=== PATIENT | male | born 1975 | race Asian ===

== ENCOUNTER 2018-04-16 07:43 | Day surgery (SDC) | payer MEDICARE, MEDICAID ==
[~2018-04-16] VITALS: Ht 160 cm; Wt 62.5 kg
[~2018-04-16 07:43] MED LIST: ASPI81TA52 PO; ATOR10TA87 PO; BUPROPION PO; LINA5TAB4 PO; METFORMIN; OMEPRAZOLE PO; RAMIPRIL PO; TENO300T5 PO
[2018-04-16 08:00] VITALS: BP 123/85
[2018-04-16] MEDS ORDERED: normal saline 1000ml 1,000 ML IV SCH (08:00)
[2018-04-16] MEDS ORDERED: FERR325T28 PO (08:11)
[2018-04-16 08:54] LABS: BASOPHILS % (AUTO) 0.6 % (0-1); EOSINOPHILS # (AUTO) 0.1 X10'3 (0-0.9); HEMATOCRIT 34.5 % (42.0-52.0); HEMOGLOBIN 10.4 g/dl (14.0-17.9); LYMPHOCYTES # (AUTO) 1.1 X10'3 (1.1-4.8); LYMPHOCYTES % (AUTO) 21.7 % (21-51); MEAN CORPUSCULAR HEMOGLOBIN 21.1 PG (27.0-31.0); MEAN CORPUSCULAR HGB CONC 30.3 % (33.0-36.5); MEAN CORPUSCULAR VOLUME 69.8 FL (78-98); MEAN PLATELET VOLUME 9.3 FL (7.4-10.4); MONOCYTES # (AUTO) 0.5 X10'3 (0-0.9); MONOCYTES % (AUTO) 8.9 % (2-12); NEUTROPHILS # (AUTO) 3.5 X10'3 (1.8-7.7); NEUTROPHILS % (AUTO) 66.8 % (42-75); PLATELET COUNT 174 X10'3 (140-440); RED BLOOD COUNT 4.94 X10'6 (4.70-6.10); RED CELL DISTRIBUTION WIDTH 18.8 % (11.5-14.5); WHITE BLOOD COUNT 5.2 X10'3 (4.5-11.0)
[2018-04-16 08:59] LABS: PROTHROMBIN TIME 10.3 SECONDS (9.0-12.0)
[2018-04-16 09:02] LABS: ALBUMIN 3.9 G/DL (3.4-5.0); ANION GAP 10 (8-16); BLOOD UREA NITROGEN 12 MG/DL (7-18); CALCIUM 9.2 MG/DL (8.5-10.1); CHLORIDE 103 MMOL/L (99-107); GLUCOSE 161 MG/DL (70-104); POTASSIUM 4.2 MMOL/L (3.5-5.1); SODIUM 140 MMOL/L (135-145); TOTAL CARBON DIOXIDE 26.6 MMOL/L (24-32); eGFR 82 ML/MIN
[2018-04-16 09:21] LABS: PLATELET ESTIMATE NORMAL
[2018-04-16 09:22] LABS: POLYCHROMASIA 1+
[2018-04-16 09:23] LABS: ANISOCYTOSIS 2+; ELLIPTOCYTES FEW; HYPOCHROMASIA 1+; MICROCYTOSIS 2+; POIKILOCYTOSIS 1+; TEAR DROP CELLS FEW
[2018-04-16] MEDS ORDERED: LIDOcaine 1%/PF 5ML 10 MG/ML VIAL SQ ONE (09:30)
[2018-04-16] MEDS ORDERED: midazolam 2 mg/2 ml injection IV PRN (09:30)
[2018-04-16] MEDS ORDERED: fentaNYL/PF 50MCG/1 ML 2ML syringe IV PRN (09:30)
[2018-04-16] MEDS ORDERED: heparin sodium, porcine/PF 100unit/ml 5ML syringe ICATH ONE (09:30)
[2018-04-16] MEDS ORDERED: midazolam 2 mg/2 ml injection ONE (09:32)
[2018-04-16] MEDS ORDERED: fentaNYL/PF 50MCG/1 ML 2ML syringe ONE (09:32)
[2018-04-16] MEDS ORDERED: heparin sodium, porcine/PF 100unit/ml 5ML syringe ONE (09:33)
[2018-04-16] MEDS ORDERED: LIDOcaine 1%/PF 5ML 10 MG/ML VIAL ONE (09:34)
[2018-04-16 10:30] VITALS: BP 131/59
[2018-04-16 10:45] VITALS: BP 129/82
[2018-04-16 11:00] VITALS: BP 127/82
[2018-04-16 11:15] VITALS: BP 128/80
== END 2018-04-16 11:22 | disposition home or self-care (01) ==
LOC: SSTAY O 07:43
PROVIDERS: ATTEND Radiology Diagnostic Radiology
DX: C25.9 Malignant neoplasm of pancreas, unspecified (principal); E11.9 Type 2 diabetes mellitus without complications; I10 Essential (primary) hypertension; F41.8 Other specified anxiety disorders; K21.9 Gastro-esophageal reflux disease without esophagitis; E78.5 Hyperlipidemia, unspecified; F32.9 Major depressive disorder, single episode, unspecified; Z72.89 Other problems related to lifestyle; Z88.5 Allergy status to narcotic agent; Z86.19 Personal history of other infectious and parasitic diseases; Z79.84 Long term (current) use of oral hypoglycemic drugs; Z79.899 Other long term (current) drug therapy; Z88.8 Allergy status to other drugs, medicaments and biological substances; Z98.890 Other specified postprocedural states
CPT/HCPCS: 36415; 36561; 76937; 77001; 80048; 85025; 85610; 99152; 99153; C1788; J1642; J2001; J2250; J3010; J7030; A4620; A6219; C1894

== ENCOUNTER 2020-02-24 08:14 | Day surgery (SDC) | payer MEDICARE, MEDICAID ==
[~2020-02-24] VITALS: Ht 162.6 cm; Wt 48.7 kg
[2020-02-24] VITALS (8 sets, daily range): BP systolic 91–112; BP diastolic 56–62
[~2020-02-24 08:14] MED LIST changes: -ASPI81TA52 PO; +FERR325T28 PO
[2020-02-24] MEDS ORDERED: normal saline 1000ml 1,000 ML IV PRN (08:40)
[2020-02-24] MEDS ORDERED: albumin 25% 100mL bottle x 1 IV PRN (08:40)
[2020-02-24] MEDS ORDERED: FURO20TA4 PO (08:59)
[2020-02-24] MEDS ORDERED: MELO-100 PO (08:59)
[2020-02-24] MEDS ORDERED: SPIR25TA5 PO (08:59)
[2020-02-24] MEDS ORDERED: PROC10TA10 PO (08:59)
[2020-02-24] MEDS ORDERED: AMYL1CAP57 PO (08:59)
[2020-02-24] MEDS ORDERED: LACT10SO PO (08:59)
[2020-02-24] MEDS ORDERED: ALPR0.255 PO (08:59)
[2020-02-24] MEDS ORDERED: MORP15TA PO (08:59)
[2020-02-24] MEDS ORDERED: HUM7525 SQ (08:59)
== END 2020-02-24 11:40 | disposition home or self-care (01) ==
LOC: SSTAY O 08:14
PROVIDERS: ATTEND Radiology Vascular & Interventional Radiology
DX: R18.8 Other ascites (principal); C78.7 Secondary malignant neoplasm of liver and intrahepatic bile duct; Z86.19 Personal history of other infectious and parasitic diseases; Z88.8 Allergy status to other drugs, medicaments and biological substances; Z79.899 Other long term (current) drug therapy; Z85.07 Personal history of malignant neoplasm of pancreas
CPT/HCPCS: 49083; P9047

== ENCOUNTER 2020-03-02 08:10 | Day surgery (SDC) | payer MEDICARE, OTHER ==
[~2020-03-02] VITALS: Ht 162.6 cm; Wt 44.4 kg
[~2020-03-02 08:10] MED LIST changes: +ALPR0.255 PO; +AMYL1CAP57 PO; -FERR325T28 PO; +FURO20TA4 PO; +HUM7525 SQ; +LACT10SO PO; -LINA5TAB4 PO; +MELO-100 PO; +MORP15TA PO; +PROC10TA10 PO; +SPIR25TA5 PO
[2020-03-02 08:25] VITALS: BP 123/59
[2020-03-02] MEDS ORDERED: albumin 25% 100mL bottle x 1 IV PRN ×2 (08:30→08:55)
[2020-03-02 09:40] VITALS: BP 123/59
[2020-03-02 09:47] VITALS: BP 124/60
== END 2020-03-02 10:00 | disposition home or self-care (01) ==
LOC: SSTAY O 08:10
PROVIDERS: ATTEND Radiology Diagnostic Radiology
DX: R18.8 Other ascites (principal); K74.60 Unspecified cirrhosis of liver; C78.7 Secondary malignant neoplasm of liver and intrahepatic bile duct; Z86.19 Personal history of other infectious and parasitic diseases; Z85.07 Personal history of malignant neoplasm of pancreas; Z88.8 Allergy status to other drugs, medicaments and biological substances; Z79.899 Other long term (current) drug therapy
CPT/HCPCS: 49083

== ENCOUNTER 2020-03-04 08:02 | Day surgery (SDC) | payer MEDICARE, OTHER ==
[~2020-03-04 08:02] MED LIST changes: -ALPR0.255 PO; -BUPROPION PO; -MELO-100 PO; -PROC10TA10 PO
[2020-03-04 08:23] VITALS: BP 106/74
[2020-03-04] MEDS ORDERED: ONDA8TAB13 PO (08:49)
[2020-03-04] MEDS ORDERED: PANT-47 PO (08:49)
[2020-03-04] MEDS ORDERED: ALPR-623 PO (08:49)
[2020-03-04 09:11] LABS: BASOPHILS # (AUTO) 0.1 X10'3 (0-0.2); BASOPHILS % (AUTO) 0.3 % (0-1); EOSINOPHILS # (AUTO) 0.1 X10'3 (0-0.9); EOSINOPHILS % (AUTO) 0.2 % (0-6); HEMATOCRIT 24.9 % (42.0-52.0); HEMOGLOBIN 8.2 g/dl (14.0-17.9); LYMPHOCYTES # (AUTO) 2.1 X10'3 (1.1-4.8); LYMPHOCYTES % (AUTO) 7.4 % (21-51); MEAN CORPUSCULAR HGB CONC 33.1 g/dL (33.0-36.5); MEAN CORPUSCULAR VOLUME 93.7 FL (78-98); MEAN PLATELET VOLUME 7.8 FL (7.4-10.4); MONOCYTES # (AUTO) 1.6 X10'3 (0-0.9); MONOCYTES % (AUTO) 5.6 % (2-12); NEUTROPHILS # (AUTO) 24.7 X10'3 (1.8-7.7); NEUTROPHILS % (AUTO) 86.5 % (42-75); PLATELET COUNT 473 X10'3 (140-440); RED BLOOD COUNT 2.66 X10'6 (4.70-6.10); RED CELL DISTRIBUTION WIDTH 20.3 % (11.5-14.5)
[2020-03-04 09:19] LABS: WHITE BLOOD COUNT 28.6 X10'3 (4.5-11.0)
[2020-03-04 10:10] LABS: PLATELET ESTIMATE INCREASED; TOTAL CELLS COUNTED 100
[2020-03-04 10:11] LABS: ANISOCYTOSIS 3+
[2020-03-04 10:12] LABS: HYPOCHROMASIA 1+
[2020-03-04 10:13] LABS: TARGET CELLS FEW
--- NOTE | 2020-03-04 10:21 | NUR ---
Pt with elevated WBC today. Per patient and son-in-law this is his normal. Call placed to [facility], spoke with PRITI Gomez and Dr Redmond. Per Dr Redmond ok to proceed with placement if patient is afebrile with an oral temp of 98.4 so we will proceed.
[2020-03-04] MEDS ORDERED: LIDOcaine/PRILOcaine 5gm cream TP ONE (10:41)
[2020-03-04] MEDS ORDERED: midazolam 2 mg/2 ml injection ONE (10:49)
[2020-03-04] MEDS ORDERED: fentaNYL/PF 50MCG/1 ML 2ML syringe ONE (10:50)
[2020-03-04 11:58] VITALS: BP 104/74
[2020-03-04 12:15] VITALS: BP 100/66
[2020-03-04 12:30] VITALS: BP 98/68
[2020-03-04 12:45] VITALS: BP 95/64
[2020-03-04 13:00] VITALS: BP 95/69
== END 2020-03-04 11:15 | disposition home or self-care (01) ==
LOC: SSTAY O 08:02
PROVIDERS: ATTEND Radiology Vascular & Interventional Radiology
DX: R18.8 Other ascites (principal); C25.0 Malignant neoplasm of head of pancreas; K74.60 Unspecified cirrhosis of liver; E61.1 Iron deficiency; Z86.19 Personal history of other infectious and parasitic diseases; Z79.899 Other long term (current) drug therapy; Z88.8 Allergy status to other drugs, medicaments and biological substances
CPT/HCPCS: 49418; 85025; 99152; 99153; J2250; J3010; 85007